=== PATIENT | male | born 2005 | race Caucasian/White ===

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

== ENCOUNTER 2025-06-04 12:33 | Emergency (ER) | payer MEDICAID ==
[~2025-06-04] VITALS: Ht 190.5 cm; Wt 90.2 kg
[2025-06-04 13:07] LABS: BASO # 0.0 10^3/uL (0.0-0.2); BASO % 0.1 % (0.0-1.0); EOS # 0.0 10^3/uL (0.0-0.5); EOS % 0.1 % (0.0-3.0); LYMPH # 1.7 10^3/uL (1.5-5.0); LYMPH % 20.3 % (24.0-44.0); MONO # 0.5 10^3/uL (0.0-0.8); MONO % 5.5 % (2.0-8.0); NEUTROPHILS # 6.3 10^3/uL (1.5-8.5); NEUTROPHILS % 73.8 % (36.0-66.0); PLATELET COUNT, AUTOMATED 237 10^3/uL (150-450)
[2025-06-04] MEDS ORDERED: SERT-141 PO (13:19)
[2025-06-04] MEDS ORDERED: DOXA2TAB61 PO (13:20)
[2025-06-04] MEDS ORDERED: TRAZ-252 PO (13:25)
[2025-06-04] MEDS ORDERED: HYDR-3364 PO (13:25)
[2025-06-04 13:38] LABS: CALCIUM LEVEL 9.7 MG/DL (8.5-10.1); CARBON DIOXIDE LEVEL 30 MMOL/L (20-31); CHLORIDE LEVEL 102 MMOL/L (98-107); CREATININE FOR GFR 0.93 MG/DL (0.70-1.30); GLOMERULAR FILTRATION RATE > 90.0 (>60); POTASSIUM SERUM 4.5 MMOL/L (3.5-5.1); SODIUM LEVEL 141 MMOL/L (136-145)
[2025-06-04] MEDS: diphenhydrAMINE 50 MG/ML VIAL IV STA (15:41)
[2025-06-04] MEDS: ACETAMINOPHEN 500 MG TAB PO ONE (15:42)
[2025-06-04] MEDS: NS 500 ML IV ONE (15:42)
[2025-06-04 16:29] VITALS: BP 118/71; TEMP 97.5; O2SAT 99
== END 2025-06-04 16:43 | disposition home or self-care (01) ==
LOC: M ED 12:33 → EDBD 12:33 → M ED 16:43
DX: G43.909 Migraine, unspecified, not intractable, without status migrainosus (principal); Z79.899 Other long term (current) drug therapy
CPT/HCPCS: 70450; 80048; 85025; 94760; 96361; 96374; 99284; J1200; J2765